=== PATIENT | male | born 1940 | race Caucasian/White ===

== ENCOUNTER 2023-03-09 20:27 | Emergency (ER) | payer MEDICARE ==
[~2023-03-09] VITALS: Ht 172.7 cm; Wt 68.0 kg
[2023-03-09] MEDS ORDERED: FLUORESCEIN SODIUM OPHTH 1 EA STRIP ONE (22:16)
[2023-03-09 22:28] VITALS: BP 131/76; TEMP 98; O2SAT 98
[2023-03-09] MEDS ORDERED: TETRACAINE HCL 2% OPHTHALIC 30 ML BOTTLE EACHEYE ONE (22:30)
[2023-03-09] MEDS ORDERED: FLUORESCEIN SODIUM OPHTH 1 EA STRIP OP ONE (22:30)
== END 2023-03-09 22:28 | disposition home or self-care (01) ==
LOC: ER 20:37
DX: T15.01XA Foreign body in cornea, right eye, initial encounter (principal); Z90.89 Acquired absence of other organs; Z88.2 Allergy status to sulfonamides; Z88.8 Allergy status to other drugs, medicaments and biological substances; Z60.2 Problems related to living alone; W44.8XXA Other foreign body entering into or through a natural orifice, initial encounter; Y93.89 Activity, other specified; Y92.89 Other specified places as the place of occurrence of the external cause; Y99.8 Other external cause status